=== PATIENT | female | born 1955 | race Caucasian/White ===

== ENCOUNTER 2019-02-19 06:45 | Day surgery (SDC) | payer BC ==
[~2019-02-19] VITALS: Ht 30.5 cm; Wt 0.5 kg
[2019-02-19] VITALS (7 sets, daily range): BP systolic 111–128; BP diastolic 63–72
[2019-02-19] MEDS ORDERED: LR 1000ml 1,000 ML IVLG SCH ×2 (07:00→07:29)
[2019-02-19] MEDS ORDERED: DiphenhydrAMINE 50mg/ml Inj IVP PRN (07:30)
[2019-02-19] MEDS ORDERED: fentaNYL 100 mcg/2 mL IV PRN (07:30)
[2019-02-19] MEDS ORDERED: Atropine Inj 1mg/10ml Syr IV PRN (07:30)
[2019-02-19] MEDS ORDERED: Midazolam 2mg/2ml Inj IVP PRN (07:30)
--- NOTE | 2019-02-19 07:32 | Anethesia Preoperative Eval ---
Anesthesia Pre-op PMH/ROS General Date of Evaluation: Feb 19, 2019 Time of Evaluation: 07:30 Anesthesiologist: parris ASA Score: ASA 2 Mallampati Score Class I : Soft palate, uvula, fauces, pillars visible Class II: Soft palate, uvula, fauces visible Class III: Soft palate, base of uvula visible Class IV: Only hard plate visible Mallampati Classification: Class I Surgeon: linn Diagnosis: gerd Surgical Procedure: egd/colonoscopy Anesthesia History: none Social History: current smoker Family History: no anesthesia problems Allergies: Coded Allergies: No Known Allergies (Unverified , 11/27/13) Medications: see eMAR Patient NPO?: Yes Past Medical History Gastrointestinal/Genitourinary: Reports: GERD Neurologic/Psychiatric: Reports: depression/anxiety Endocrine: Reports: other - menopausal HEENT: Reports: other - decreased visual acuity PSxH Narrative: oral surgery Anesthesia Pre-op Phys. Exam Physician Exam Last Vital Signs Date Time Temp Pulse Resp B/P (MAP) Pulse Ox O2 Delivery O2 Flow Rate FiO2 02/19/19 07:25 97.1 60 18 125/70 96 Room Air Constitutional: NAD Neurologic: CN 2-12 intact Cardiovascular: RRR Respiratory: CTA Gastrointestinal: S/NT/ND Airway Exam Mallampati Score: Class II MO: full Neck: flexible TMD: 2fb ROM: full Anesthesia Pre-op A/P Studies Pre-op Studies: EKG - sinus bradycardia Risk Assessment & Plan Assessment: asa2 Plan: mac Status Change Before Surgery: No Pre-Antibiotics Drug: Jessica Diaz MD Feb 19, 2019 07:32
[2019-02-19] MEDS ORDERED: Lidocaine 1% MPF 10mg/ml 5ml ONE (08:30)
[2019-02-19] MEDS ORDERED: Propofol 200mg/20ml IV ONE (08:30)
[2019-02-19] MEDS ORDERED: LR 1000ml ONE (08:30)
--- NOTE | 2019-02-19 09:31 | Pre-Procedure Note/Attestation ---
Pre-Procedure Note/Attestation Complete Prior to Procedure Planned Procedure: not applicable Procedure Narrative: esophagogastroduodenoscopy and colonoscopy Indications for Procedure Pre-Operative Diagnosis: screening colon, GERD Attestation I attest that I discussed the nature of the procedure; its benefits; risks and complications; and alternatives (and the risks and benefits of such alternatives ), prior to the procedure, with the patient (or the patient's legal passenger service representative). I attest that, if there was a reasonable possibility of needing a blood transfusion, the patient (or the patient's legal passenger service representative) was given the [facility] standardized written summary, pursuant to the [place] Blood Safety Act ([place] Health and Safety Code # 1645, as amended). I attest that I re-evaluated the patient just prior to the surgery and that there has been no change in the patient's H&P, except as documented below: Louis Ballard MD Feb 19, 2019 09:31
--- NOTE | 2019-02-19 09:32 | Short Stay Surgery H&P ---
History of Present Illness History of Present Illness Chief Complaint screening colon HPI Jelena Grimaldo is a 63 year old female who was admitted on for Chronic Gerd Patient History Allergies: Coded Allergies: No Known Allergies (Unverified , 11/27/13) PAST MEDICAL HISTORY: (1) GERD (gastroesophageal reflux disease) Review of Systems Cardiovascular: Reports: no symptoms Respiratory: Reports: no symptoms Skeletal: Reports: no symptoms Gastrointestinal: Reports: gastro esophageal reflux disease Genitourinary: Reports: no symptoms Neurologic: Reports: no symptoms Endocrine: Reports: no symptoms Hematologic: Reports: no symptoms Physical Exam Vital Signs Last Vital Signs Date Time Temp Pulse Resp B/P (MAP) Pulse Ox O2 Delivery O2 Flow Rate FiO2 02/19/19 07:25 97.1 60 18 125/70 96 Room Air Skin: normal HENT: normal Heart: normal Lungs: normal Abdomen: normal Extremities: normal Plan Plan of Care esophagogastroduodenoscopy and colonoscopy Attestation Are the patient's medical conditions optimized for surgery? Attestation Response: yes Louis Ballard MD Feb 19, 2019 09:32
--- NOTE | 2019-02-19 09:54 | Endoscopy Procedure Note ---
Endoscopy Procedure Note General Indication for Procedure: screening colon Procedures Performed: EGD, colonoscopy Operative Findings/Diagnosis: gastritis, diverticulosis Specimen: yes Pt Tolerated Procedure Well: Yes Estimated Blood Loss: none Anesthesia Anesthesiologist: nancy Anesthesia: MAC Inserted Devices Implant(s) used?: No Quality Quality of Bowel Preparation: Good Did scope reach the cecum?: Yes Was there any complications?: No GI Core Measures 50 yrs or older w/o bx or poly: No 10yrs. F/U recommended: Yes If not recommended, why?: Above average risk 18 years or older w/prev. colo: No Louis Ballard MD Feb 19, 2019 09:54
--- NOTE | 2019-02-19 11:12 | Immediate Post-Op Evaluation ---
Immediate Post-Op Evalulation Immediate Post-Op Evalulation Procedure: egd/colonoscopy w/bx Date of Evaluation: Feb 19, 2019 Time of Evaluation: 10:13 IV Fluids: 600ml lr Blood Products: none Estimated Blood Loss: negligible Blood Pressure Systolic: 115 Blood Pressure Diastolic: 68 Pulse Rate: 60 Respiratory Rate: 18 O2 Sat by Pulse Oximetry: 100 Temperature (Fahrenheit): 97.5 Pain Score (1-10): 0 Nausea: No Vomiting: No Complications none Patient Status: awake, reacts, patent Hydration Status: adequate Drug: Jessica Diaz MD Feb 19, 2019 11:12
--- NOTE | 2019-02-19 11:17 | 48 Hour Post Anesthesia Eval ---
Post Anesthesia Evaluation Procedure: egd/colonoscopy w/bx Date of Evaluation: Feb 19, 2019 Time of Evaluation: 10:15 Blood Pressure Systolic: 111 0: 72 Pulse Rate: 62 Respiratory Rate: 18 Temperature (Fahrenheit): 97.5 O2 Sat by Pulse Oximetry: 100 Airway: patent Nausea: No Vomiting: No Pain Intensity: 0 Hydration Status: adequate Cardiopulmonary Status: stable Mental Status/LOC: patient returned to baseline Post-Anesthesia Complications: none Follow-up care needed: N/A Jessica Gibbons MD Feb 19, 2019 11:17
--- NOTE | 2019-02-19 15:45 | Procedure Note ---
DATE OF PROCEDURE: 02/19/2019 SURGEON: Louis Ballard M.D. PROCEDURE: Upper endoscopy with biopsy and colonoscopy. ANESTHESIA: Per Dr. Hebert. INSTRUMENT: Olympus adult flexible upper colonoscope and endoscope. INDICATION: 1. Screening colonoscopy. 2. Chronic GERD. REASON FOR PROCEDURE: The procedure, risks, benefits, and possible consequences, including hemorrhage, aspiration, perforation and infection, and alternative treatments, were explained to the patient/legal guardian by Dr. Louis Ballard and the patient/legal guardian understood and accepted these risks. PROCEDURE IN DETAIL: After informed consent was obtained and the patient was adequately sedated, first Olympus upper endoscope was advanced from mouth into the second portion of the duodenum and retroflexion was performed in the stomach. The patient had mild atrophic gastritis. Biopsy from antrum and body was obtained to rule out H. pylori infection. Otherwise, the rest of the upper endoscopic examination grossly looked within normal limit. At this time, the upper endoscope was retrieved and the patient was turned over for colonoscopy. First, rectal exam was performed, which was positive for internal hemorrhoids. Then, the scope was advanced from the rectum into the cecum and then subsequently into the terminal ileum. Quality of prep was good. The patient had diverticulosis left colon, otherwise normal colonoscopy examination. Retroflexion of rectum showed evidence of internal hemorrhoids. SUMMARY OF FINDINGS: 1. Mild atrophic gastritis, status post biopsy. 2. Diverticulosis. 3. Internal hemorrhoids. RECOMMENDATIONS: Follow up biopsy results and treat accordingly. Louis Ballard M.D. DR: Paras JOB#: [id number] CC:
== END 2019-02-19 10:55 | disposition home or self-care (01) ==
LOC: GAS 06:45 → EDBD 09:00 → GAS 10:55
DX: Z12.11 Encounter for screening for malignant neoplasm of colon (principal); K21.9 Gastro-esophageal reflux disease without esophagitis; K57.90 Diverticulosis of intestine, part unspecified, without perforation or abscess without bleeding; K64.8 Other hemorrhoids; F41.9 Anxiety disorder, unspecified; F32.9 Major depressive disorder, single episode, unspecified; F17.200 Nicotine dependence, unspecified, uncomplicated; R00.1 Bradycardia, unspecified; K29.50 Unspecified chronic gastritis without bleeding
CPT/HCPCS: 43239; 45378; 93005; J2704; 94003; 94150